=== PATIENT | female | born 1935 | race Caucasian/White ===

== ENCOUNTER 2016-11-20 11:29 | Emergency (ER) | payer MEDICARE ==
[~2016-11-20] VITALS: Ht 160 cm; Wt 50.0 kg
[2016-11-20] MEDS ORDERED: AMLO2.5T45 PO (11:33)
[2016-11-20 14:00] VITALS: BP 126/71
== END 2016-11-20 14:15 | disposition home or self-care (01) ==
LOC: ER 11:43
DX: K94.21 Gastrostomy hemorrhage (principal); I10 Essential (primary) hypertension; K21.9 Gastro-esophageal reflux disease without esophagitis; F03.90 Unspecified dementia, unspecified severity, without behavioral disturbance, psychotic disturbance, mood disturbance, and anxiety; D64.9 Anemia, unspecified; Z93.1 Gastrostomy status
CPT/HCPCS: 99283

== ENCOUNTER 2016-12-29 19:19 | Emergency (ER) | payer MEDICARE ==
[~2016-12-29] VITALS: Ht 172.7 cm; Wt 68.0 kg
[~2016-12-29 19:19] MED LIST: AMLO2.5T45 PO
[2016-12-29 22:45] VITALS: BP 125/70
== END 2016-12-30 06:07 ==
LOC: ER 19:31
DX: Z43.1 Encounter for attention to gastrostomy (principal); K21.9 Gastro-esophageal reflux disease without esophagitis; E11.9 Type 2 diabetes mellitus without complications; I10 Essential (primary) hypertension; F03.90 Unspecified dementia, unspecified severity, without behavioral disturbance, psychotic disturbance, mood disturbance, and anxiety
CPT/HCPCS: 51702; 99284; A4315